=== PATIENT | female | born 2000 | race Two or more races ===

== ENCOUNTER 2020-12-19 03:28 | Day surgery (SDC) | payer MEDICAID, OTHER ==
[~2020-12-19] VITALS: Ht 162.6 cm; Wt 68.0 kg
[2020-12-19] MEDS ORDERED: IBUPROFEN 800 MG TAB PO ONE ×2 (04:45→05:30)
[2020-12-19 05:21] LABS: Basophils # (auto) 0 10 ^3/uL (0-0.2); Basophils % (auto) 0.3 % (0.0-2.0); Eosinophils # (auto) 0.2 10 ^3/uL (0-0.8); Eosinophils % (auto) 1.1 % (0.0-7.0); Hematocrit 30.2 % (36.0-46.0); Hemoglobin 10.7 g/dL (12.2-16.2); Lymphocytes # (auto) 1.6 10 ^3/uL (0.4-5.4); Lymphocytes % (auto) 11.4 % (10.0-50.0); Mean Corpuscular Hemoglobin 31.2 pg (28.0-32.0); Mean Corpuscular Hgb Conc. 35.4 g/dL (32.0-36.0); Mean Corpuscular Volume 88.2 fL (80.0-100.0); Monocytes # (auto) 0.5 10 ^3/uL (0-1.3); Monocytes % (auto) 3.6 % (0.0-12.0); Neutrophils # (auto) 11.6 10 ^3/uL (1.6-8.6); Neutrophils % (auto) 83.6 % (37.0-80.0); Red Blood Cells 3.42 10^6/uL (4.0-5.20); Red Cell Distribution Width 13.7 % (11.8-14.3); White Blood Cell 13.9 10^3/uL (4.4-10.8)
[2020-12-19] MEDS ORDERED: SODIUM CHLORIDE 0.9% 1,000 ML IV ONE (05:30)
[2020-12-19 05:58] LABS: Potassium 3.8 mmol/L (3.5-5.1)
[2020-12-19] MEDS ORDERED: LACT. RINGERS/OXYTOCIN 20UNITS 1,000 ML IV ONE (06:00)
[2020-12-19 06:12] LABS: Albumin 3.1 g/dL (3.4-5.0); BUN/Creatinine Ratio 18.2; Bilirubin, Total 0.5 mg/dL (0.2-1.0); Calcium 8.4 mg/dL (8.5-10.1); Total Protein 6.6 g/dL (6.4-8.2)
[2020-12-19 06:28] LABS: INR 0.97 (0.9-1.15)
[2020-12-19] MEDS ORDERED: ceFAZolin 1GM/50ML 100 ML IV ONE (08:59)
[2020-12-19] MEDS ORDERED: fentaNYL CITRATE 100 MCG/2 ML VL ONE (09:36)
[2020-12-19] MEDS ORDERED: MEPERIDINE HCL (25 MG/ML) 1ML VIAL ONE (09:36)
[2020-12-19] MEDS ORDERED: MIDAZOLAM HCL 2MG/2ML 2ml VIAL (1mg/ml) ONE (09:37)
[2020-12-19] MEDS ORDERED: DexAMETHasone SOD PHOS 10MG/1ML VIAL INJ ONE (09:46)
[2020-12-19] MEDS ORDERED: PROPOFOL 10 MG/ML 20 ML IV ONE (09:46)
[2020-12-19] MEDS ORDERED: KETOROLAC TROMETH 30 MG/ML 1ML VIAL ONE (11:24)
[2020-12-19] MEDS ORDERED: RHO (D) IMMUNE GLOBULIN 300 MCG INJ IM PRN (11:30)
[2020-12-19 12:05] VITALS: BP 117/67
== END 2020-12-19 12:20 | disposition home or self-care (01) ==
LOC: ER 03:28 → SUR 03:29
PROVIDERS: ATTEND Obstetrics & Gynecology
DX: N93.8 Other specified abnormal uterine and vaginal bleeding (principal); O03.4 Incomplete spontaneous abortion without complication; Z91.040 Latex allergy status; Z88.5 Allergy status to narcotic agent; Z98.890 Other specified postprocedural states; Z79.899 Other long term (current) drug therapy; Z20.822 Contact with and (suspected) exposure to COVID-19
CPT/HCPCS: 36415; 59812; 76801; 80053; 84702; 85025; 85610; 86850; 86900; 86901; 87426; 88302; 88305; 96365; 96367; 99285; J0690; J1100; J1885; J2175; J2250; J2590; J2704; J3010